=== PATIENT | female | born 1950 | race Caucasian/White ===

== ENCOUNTER → 2021-12-14 11:09 | Outpatient (CLI) | payer MEDICARE, OTHER, SELFPAY ==
--- NOTE | 2021-12-14 11:11 | DI.US.S_ITS ---
PROCEDURE: US PELVIC COMPLETE INDICATIONS: ENDOMETRIAL LINING CHECK TECHNIQUE: Real-time scanning was performed of the pelvic organs, with image documentation. Additional endovaginal scanning was necessary due to incomplete visualization of the adnexal and endometrial structures by transabdominal scanning. COMPARISON: [facility], US, US PELVIC COMPLETE WITH TRANSVAGINAL, 12/28/2019, 9:58. FINDINGS: Uterus: Uterus is retroverted and normal in size at 8.5 x 5.8 x 3.9 cm. The myometrium is heterogeneous. The endometrium measures 1.6 mm combined thickness. Multiple foci of heterogeneous echogenicity are present within the myometrium some appearing consistent with cysts. There is a more solid focus in the left anterior intramural position measuring 14 x 15 x 16 mm. Nabothian cysts are noted. Ovaries: The right ovary measures 1.4 x 1.7 x 0.8 cm. The left ovary measures 3.4 x 2.7 x 1.5 cm. The ovaries have a normal sonographic appearance. Less than 12 follicles can be seen in each ovary. No adnexal masses are seen. Other: No pathologic free abdominal or pelvic fluid. IMPRESSION: 1. Heterogeneous foci within the uterus suggestive of fibroids the largest measuring approximately 16 mm. In addition, there are areas of heterogeneous echogenicity within the posterior uterus which could represent adenomyosis. 2. Myometrial cysts are also noted. We strive to produce accurate, complete, and clear reports of imaging services. To assist us in improving patient care, this report was composed using standard report templates and voice recognition software. Therefore, it may contain abnormal punctuation, insertions and/or omissions. Occasional wrong-word or sound-alike substitutions may occur. Though we review the report and make efforts to correct it, we do recommend that the report be read carefully in proper context to recognize any text inaccuracies. Dictated by: Angie Carpenter M.D. on 12/14/2021 at 20:22 Approved by: Angie Carpenter M.D. on 12/14/2021 at 20:26
== END ==
PROVIDERS: PCP Internal Medicine; Referring Provider Specialist; Visit Provider Specialist
DX: R93.89 Abnormal findings on diagnostic imaging of other specified body structures (principal); N88.8 Other specified noninflammatory disorders of cervix uteri
CPT/HCPCS: 76830; 76856